=== PATIENT | female | born 1975 | race Caucasian/White ===

== ENCOUNTER 2021-08-13 07:55 | Day surgery (SDC) | payer BC ==
[~2021-08-13 07:55] MED LIST: Bupivacaine 0.5% 50 ML MDV ONE; Isosulfan Blue 5 ML SDV ONE; Lidocaine 1% with EPINEPHrine 1:100,000 50 ML MDV ONE
[2021-08-13] MEDS ORDERED: Sodium Chloride 0.9% 1,000 ML IV SCH (08:30)
[2021-08-13] MEDS ORDERED: Dexamethasone 4 MG/ML SDV ONE (09:15)
[2021-08-13] MEDS ORDERED: fentaNYL 100 MCG/2 ML SDV ONE ×3 (09:15→12:52)
[2021-08-13] MEDS ORDERED: Ondansetron 4 MG/2 ML SDV ONE (09:15)
[2021-08-13] MEDS ORDERED: Propofol 200 MG/20 ML SDV ONE (09:15)
[2021-08-13] MEDS ORDERED: Midazolam 1 MG/ML 2 ML SDV ONE (09:15)
[2021-08-13] MEDS ORDERED: ceFAZolin 2 GM in Sodium Chloride 0.9% 100 ML IV ONE (09:50)
[2021-08-13] MEDS ORDERED: ceFAZolin 2 GM in Premix Bag 1 BAG IV ONE (09:50)
[2021-08-13] MEDS ORDERED: Scopolamine 1.5 MG Transdermal Patch TRDERM SCH (10:30)
[2021-08-13] MEDS ORDERED: Lidocaine 1% with EPINEPHrine 1:100,000 50 ML MDV INJECT ONE ×3 (11:02→12:23)
[2021-08-13] MEDS ORDERED: Lidocaine 1% 20 ML MDV INJECT ONE (11:02)
--- NOTE | 2021-08-13 11:12 | NM ---
Lymphoscintigraphy INDICATION: Left breast carcinoma PROCEDURE: After sterile prep of the left breast periareolar subcuticular injections were performed in the the 12:00, 3:00, 6:00 and 9:00 positions of 0.5 millicuries Tc-99m labeled sulfur colloid solution was administered in equally divided doses. The patient tolerated the procedure well. IMPRESSION: Left breast sentinel lymph node injection. Lymphoscintigraphy CLINICAL HISTORY: Left breast carcinoma FINDINGS: Sonographic image was performed in the lateral and AP projections over the left upper chest. The periareolar sulfur colloid injection sites are identified. There is a focal uptake in the left axilla consistent with a sentinel node IMPRESSION: [place] node identification described above
[2021-08-13] MEDS ORDERED: Ondansetron 4 MG Tab.DIS PO PRN (11:16)
[2021-08-13] MEDS ORDERED: hydrOXYzine HCL 100 MG/2 ML SDV IM PRN (11:16)
[2021-08-13] MEDS ORDERED: Acetaminophen/HYDROcodone 325-5 MG Tab PO PRN ×2 (11:16)
[2021-08-13] MEDS ORDERED: diphenhydrAMINE 50 MG/ML SDV IVPUSH PRN (11:16)
[2021-08-13] MEDS ORDERED: Ondansetron 4 MG/2 ML SDV IVPUSH PRN (11:16)
[2021-08-13] MEDS ORDERED: Benzocaine/Cetylpyridinium/Menthol Lozenge MUCMEM PRN (11:16)
[2021-08-13] MEDS ORDERED: Promethazine 25 MG/ML SDV IM PRN (11:16)
[2021-08-13] MEDS ORDERED: fentaNYL 100 MCG/2 ML SDV IVPUSH PRN ×2 (11:16)
[2021-08-13] MEDS ORDERED: Ketorolac 30 MG/ML SDV IM SCH (11:30)
[2021-08-13] MEDS ORDERED: ceFAZolin 2 GM in Premix Bag 1 BAG IV SCH (12:00)
[2021-08-13] MEDS ORDERED: Isosulfan Blue 5 ML SDV SUBCUT ONE (12:22)
[2021-08-13] MEDS ORDERED: Bupivacaine 0.5% 50 ML MDV INJECT ONE ×2 (12:24)
[2021-08-13] MEDS ORDERED: Ketorolac 30 MG/ML SDV ONE (12:31)
--- NOTE | 2021-08-13 12:48 | MY ---
ULTRASOUND-GUIDED localization wire placement, left breast: HISTORY: Left breast carcinoma PROCEDURE: Following informed consent patient was scanned over the left breast. Left breast nodule in the posterior lateral aspect was identified along with the previously placed marker. Skin was marked. Skin was then prepped and draped sterilely. 1% Xylocaine anesthesia was instilled into the skin and superficial soft tissue towards the target. A [place] localization needle was passed through the lesion under ultrasound guidance. The wire was then stabilized and the needle removed. Patient was sent for two-view mammogram TWO-VIEW POSTPROCEDURE MAMMOGRAM: The localization wire is through the abnormal density described on mammogram. The biopsy marker is contiguous to the posterior portion of the thickened wire. CONCLUSION: Successful wire localization of a upper outer posterior left breast lesion SPECIMEN RADIOGRAPH: A single image of the breast specimen was radiographed. It contains the described nodule, the localization wire and the prior placed breast biopsy marker CONCLUSION: Specimen contains the described nodule
[2021-08-13] MEDS ORDERED: Lactated Ringers 1,000 ML ONE (12:59)
[2021-08-13] MEDS ORDERED: SCOPOLAMINE PATCH CHECK TOP SCH (16:00)
--- NOTE | 2021-08-14 06:49 | OR ---
DATE OF PROCEDURE: 08/13/2021 SURGEON: Devang Keene MD PROCEDURE: 1. Lumpectomy, left breast. 2. [place] node, left breast. PREOPERATIVE DIAGNOSIS: Ductal carcinoma, left breast. POSTOPERATIVE DIAGNOSIS: Ductal carcinoma, left breast. PATHOLOGY: 1. Left breast lumpectomy, single stitch superior, double stitch lateral, triple stitch anterior. 2. Left breast skin, single stitch superior, double stitch lateral. 3. [place] node #1. 4. [place] node #2. FINDINGS: 1. A mass consistent with breast cancer, left breast. 2. Benign lymph nodes on frozen section. COMPLICATIONS: None. MYSQL DBA: None. ANESTHETIC: General/local. RISKS: Risks, benefits, alternatives, and limitations including, but not limited to infection, bleeding, chronic wounds, chronic pain, requirement for reoperation, postoperative radiation, false positives and false negatives were all explained to the patient and they wished to proceed. PROCEDURE IN DETAIL: The patient was placed in supine position. The wire was identified in the lateral aspect of the left breast. An incision was made in an elliptical type fashion around the curvature of the breast in a radial type fashion to enhance cosmetic outcome. The wire was then followed below the skin, which tracked underneath the skin for approximately 4 to 5 cm. This resulted in the skin having to be unroofed in this area, which we sent for a second specimen as described above. The wire then fed, and this was followed down and circumnavigated using electrocautery. The specimen was marked as described above. This was marked prior to removal from the body. Minimal bleeding was controlled with electrocautery. The drain was placed in the inferior aspect of the incision. This was 10 round. The wound was irrigated again, checked for bleeding which minimal bleeding noted. It was addressed with electrocautery. The wound was closed with 3- 0 Vicryl and 4-0 Vicryl in interrupted fashion at the end of the case. Using the gamma probe, it was noted that the sentinel node was in proximity to this incision. Therefore, the same incision could be used for both objectives. The [employer] counter was used and [id number] number was reported. A large blue node was identified. This was then addressed with clips and suture ligated and removed and sent for pathology. There was a background of approximately 8% and a second smaller lymph node was noted in this same chain, also noted to be blue. This was then excised and sent for sentinel node #2. Once these were both removed in the same fashion, the Neoprobe was used and there was less than a 2% background at this time. The area was inspected for abnormality such as bleeding and none was noted. The entire wound was then closed in two layers with 3-0 Vicryl and 4-0 Vicryl in interrupted running fashion. Dermabond was applied. The patient tolerated the procedure well. Devang Keene MD /[id number]
[2021-08-14] MEDS ORDERED: Enoxaparin 40 MG/0.4 ML Syringe SUBCUT SCH (09:00)
== END 2021-08-13 16:30 | disposition home or self-care (01) ==
LOC: JP.SDS 07:55 → EDSTATUS 14:30 → JP.SDS 16:30
PROVIDERS: ATTEND Surgery
DX: C50.912 Malignant neoplasm of unspecified site of left female breast (principal)
CPT/HCPCS: 19301; 36415; 38525; 76098; 76942; 77065; 78195; 84703; 86850; 86900; 86901; A9270; A9541; J0690; J1100; J1885; J2250; J2405; J2704; J3010; J3490; J7030; J7120; Q9968